=== PATIENT | female | born 1960 | race Caucasian/White ===

== ENCOUNTER 2016-11-02 11:29 | Emergency (ER) | payer SELFPAY ==
[2016-11-02] MEDS ORDERED: NORMAL SALINE 1000 ML 1,000 ML IV ONE (12:17)
[2016-11-02] MEDS ORDERED: KETOROLAC TROMETHAMINE INJ/PF 30 MG/1 ML SDV IV ONE (12:17)
--- NOTE | 2016-11-02 12:19 | ER Document Report ---
ED Medical Screen (RME) - General Chief Complaint: Abdominal Pain Stated Complaint: ABDOMINAL PAIN Time Seen by Provider: 11/02/16 12:16 Mode of Arrival: Ambulatory Information source: Patient TRAVEL OUTSIDE OF THE [place] IN LAST 30 DAYS: No - HPI Patient complains to provider of: abd pain Onset: Other - pt. states she has had intermittent abd pain for the past few days -- got much worse today. Pt. was dramtic unintentional wt. loss over the past several months - Related Data Allergies/Adverse Reactions: morphine [Morphine] Allergy (Mild, Verified 11/02/16 11:50) Home Medications: Current Home Medications No Home Medications 11/02/16 [History] Past Medical History - Social History Chew tobacco use (# tins/day): No Frequency of alcohol use: None Drug Abuse: None - Past Medical History Cardiac Medical History: Denies: Hx Coronary Artery Disease, Hx Hypercholesterolemia, Hx Hypertension Pulmonary Medical History: Reports: Hx Bronchitis Denies: Hx Asthma, Hx COPD, Hx Pneumonia Neurological Medical History: Reports: Hx Cerebrovascular Accident - medication related, drops out, ct's normal Renal/ Medical History: Reports: Hx Kidney Stones, Hx Ovarian Cysts, Hx Pelvic Inflammatory Disease. Denies: Hx Peritoneal Dialysis Malignancy Medical History: Reports: Hx Cervical Cancer - uterus too GI Medical History: Reports: Hx Gastroesophageal Reflux Disease, Hx Irritable Bowel, Hx Ulcerative Colitis. Denies: Hx Hepatitis Psychiatric Medical History: Reports: Hx Anxiety Traumatic Medical History: Reports: Hx Fractures - neck fx rib fx Infectious Medical History: Denies: Hx Hepatitis Past Surgical History: Reports: Hx Appendectomy, Hx Cholecystectomy, Hx Gynecologic Surgery - 1 oophorectomy, Hx Hysterectomy - and single oophorectomy , Hx Orthopedic Surgery - right shoulder and elbow - Immunizations Immunizations up to date: No - pt unsure Hx Diphtheria, Pertussis, Tetanus Vaccination: Yes Physical Exam - Vital signs Vitals: Temp Pulse Resp BP Pulse Ox 97.9 F 71 18 152/95 H 100 11/02/16 11:47 11/02/16 11:47 11/02/16 11:47 11/02/16 11:47 11/02/16 11:47 Course - Vital Signs Vital signs: Temp Pulse Resp BP Pulse Ox 97.9 F 71 18 152/95 H 100 11/02/16 11:47 11/02/16 11:47 11/02/16 11:47 11/02/16 11:47 11/02/16 11:47
[2016-11-02 12:59] LABS: ABSOLUTE EOSINOPHILS # (AUTO) 0.1 10^3/uL (0.0-0.6); ABSOLUTE LYMPHOCYTES (AUTO) 3.5 10^3/uL (0.5-4.7); ABSOLUTE MONOCYTES (AUTO) 0.4 10^3/uL (0.1-1.4); ABSOLUTE NEUT (AUTO) 2.6 10^3/uL (1.7-8.2); BASOPHILS % (AUTO) 0.6 % (0-2); EOSINOPHILS % (AUTO) 1.6 % (0-6); HEMOGLOBIN 14.1 g/dL (12.0-15.5); HGB HCT DIFFERENCE 2.3; LYMPHOCYTES % (AUTO) 52.8 % (13-45); MEAN CORPUSCULAR HEMOGLOBIN 33.6 pg (27.0-33.4); MEAN CORPUSCULAR HGB CONC 35.2 g/dL (32.0-36.0); MEAN CORPUSCULAR VOLUME 96 fl (80-97); MONOCYTES % (AUTO) 5.9 % (3-13); RED BLOOD COUNT 4.19 10^6/uL (3.72-5.28); RED CELL DISTRIBUTION WIDTH 13.6 % (11.5-14.0); SEGMENTED NEUTROPHILS % (AUTO) 39.1 % (42-78); WHITE BLOOD COUNT 6.6 10^3/uL (4.0-10.5)
[2016-11-02 13:13] LABS: APPEARANCE,URINE CLEAR; BILIRUBIN,URINE NEGATIVE (NEGATIVE); GLUCOSE, URINE NEGATIVE (NEGATIVE); KETONES,URINE NEGATIVE (NEGATIVE); LEUKOCYTE ESTERASE,URINE TRACE (NEGATIVE); NITRITE,URINE NEGATIVE (NEGATIVE); PROTEIN,URINE NEGATIVE (NEGATIVE); URINE SPECIFIC GRAVITY 1.004; UROBILINOGEN,URINE NEGATIVE mg/dL (<2.0)
[2016-11-02 13:18] LABS: ALANINE AMINOTRANSFERASE 22 U/L (9-52); ALBUMIN 4.7 g/dL (3.5-5.0); ALKALINE PHOSPHATASE 71 U/L (38-126); ANION GAP 13 (5-19); ASPARTATE AMINO TRANSFERASE 21 U/L (14-36); BILIRUBIN,DIRECT 0.4 mg/dL (0.0-0.4); BILIRUBIN,TOTAL 0.5 mg/dL (0.2-1.3); BLOOD UREA NITROGEN 6 mg/dL (7-20); CALCIUM 10.2 mg/dL (8.4-10.2); CARBON DIOXIDE 31 mmol/L (22-30); CHLORIDE 101 mmol/L (98-107); CREATININE RESULT 0.65 mg/dL (0.52-1.25); GLUCOSE 78 mg/dL (75-110); LIPASE 24.5 U/L (23-300); POTASSIUM 4.2 mmol/L (3.6-5.0); SODIUM 144.5 mmol/L (137-145); TOTAL PROTEIN 7.3 g/dL (6.3-8.2)
--- NOTE | 2016-11-02 14:13 | RADIOLOGY REPORT (SQ) ---
EXAM DESCRIPTION: CT ABD/PELVIS WITH IV ONLY COMPLETED DATE/TIME: 11/02/2016 1:42 pm REASON FOR STUDY: abd pain COMPARISON: None. TECHNIQUE: CT scan of the abdomen and pelvis performed using helical scanning technique with dynamic intravenous contrast injection. No oral contrast. Images reviewed with lung, soft tissue, and bone windows. Reconstructed coronal and sagittal MPR images reviewed. Delayed images for evaluation of the urinary system also acquired. All images stored on PACS. All CT scanners at this facility use dose modulation, iterative reconstruction, and/or weight based d osing when appropriate to reduce radiation dose to as low as reasonably achievable (ALARA). [facility]: Dose Right [facility]: CareDose [facility]: Dose Right [facility]: Teradose 4D [facility]: ThousandEyes CONTRAST TYPE AND DOSE: contrast/concentration: Isovue 370.00 mg/ml; Total Contrast Delivered: 68.0 ml; Total Saline Delivered: 65.0 ml RENAL FUNCTION: 0.65 RADIATION DOSE: Up-to-date CT equipment and radiation dose reduction techniques were employed. CTDIv ol: 7.1 - 9.2 mGy. DLP: 808 mGy-cm.. LIMITATIONS: Lack of oral contrast. FINDINGS: LOWER CHEST: No significant findings. No nodules or infiltrates. LIVER: Normal size. No masses. No dilated ducts. SPLEEN: Normal size. No focal lesions. PANCREAS: No masses. No significant calcifications. No adjacent inflammation or peripancreatic fluid collections. Pancreatic duct not dilated. GALLBLADDER: Surgically absent. ADRENAL GLANDS: No significant masses or asymmetry. RIGHT KIDNEY AND URETER: Right upper and lower pole scarring with focal caliceal dilatation at the si rafaela of the scarring. No solid masses. 2 nonobstructing stones in the lower pole largest measuring 5 mm. No hydronephrosis or hydroureter. LEFT KIDNEY AND URETER: No solid masses. No significant calcifications. No hydronephrosis or hydr oureter. AORTA AND VESSELS: No aneurysm. No dissection. Renal arteries, SMA, celiac without stenosis. RETROPERITONEUM: No retroperitoneal adenopathy, hemorrhage or masses. BOWEL AND PERITONEAL CAVITY: No masses or inflammatory changes. No free fluid or peritoneal masses. APPENDIX: Not visualized. PELVIS: No mass. No free fluid. Normal bladder. ABDOMINAL WALL: No masses. No hernias. BONES: No significant or acute findings. OTHER: No other significant finding. IMPRESSION: 1. Right renal scarring with small nonobstructing stones in the lower pole of the right kidney. 2. No acute abnormalities. TECHNICAL DOCUMENTATION: JOB ID: [id number] Quality ID # [id number]: Final reports with documentation of one or more dose reduction techniques (e.g., Au tomated exposure control, adjustment of the mA and/or kV according to patient size, use of iterative reconstruction technique) 2010 [employer]- All Rights Reserved
[2016-11-02] MEDS ORDERED: DIAZEPAM 2 MG TABLET PO ONE (15:22)
--- NOTE | 2016-11-02 15:59 | RADIOLOGY REPORT (SQ) ---
EXAM DESCRIPTION: CHEST PA/LAT COMPLETED DATE/TIME: 11/02/2016 3:43 pm REASON FOR STUDY: cough COMPARISON: AP chest 11/17/2009 EXAM PARAMETERS: NUMBER OF VIEWS: two views TECHNIQUE: Digital Frontal and Lateral radiographic views of the chest acquired. RADIATION DOSE: NA LIMITATIONS: none FINDINGS: LUNGS AND PLEURA: No opacities, masses or pneumothorax. No pleural effusion. MEDIASTINUM AND HILAR STRUCTURES: No masses or contour abnormalities. HEART AND VASCULAR STRUCTURES: Heart normal size. No evidence for failure. BONES: No acute changes. Old lower cervical fusion hardware HARDWARE: None in the chest. OTHER: No other significant finding. IMPRESSION: NO SIGNIFICANT RADIOGRAPHIC FINDING IN THE CHEST. TECHNICAL DOCUMENTATION: JOB ID: [id number] [employer]- All Rights Reserved
--- NOTE | 2016-11-02 16:10 | ER Document Report ---
ED GI/ - General Chief Complaint: Abdominal Pain Stated Complaint: ABDOMINAL PAIN Time Seen by Provider: 11/02/16 12:16 Mode of Arrival: Ambulatory Information source: Patient TRAVEL OUTSIDE OF THE [place] IN LAST 30 DAYS: No - HPI Patient complains to provider of: Abdominal pain Timing/Duration: Gradual Quality of pain: Sharp, Stabbing Severity at maximum: Severe Severity in ED: Moderate Location: Epigastric Associated symptoms: Nausea, Vomiting Exacerbated by: Food Similar symptoms previously: Yes Recently seen / treated by doctor: No Notes: 11/02/16 17:42 Patient is a 56-year-old female who presents to the emergency room complaining of worsening abdominal pain over the past 2-3 days, it is sharp and stabbing and in the epigastric region, it is worsened after eating and she is constantly nauseated, she reports having normal bowel movements, no fever, no urinary symptoms, patient reports a history of GI issues dating back for years, was previously followed by a [facility] who told her she had borderline Crohn's disease but she was not placed on medication for this, she reports losing approximately 40 pounds over the last 3 months because she is unable to eat without causing her nausea and vomiting or significant pain, she reports that she has an appetite can just not tolerate food when she ingests, she reports that it is any kind of food that she eats as tried several different foods including bland cereal, patient also goes on to report that she has had a lot of stress in her life recently, and is typically suffering from issues related to depression and possibly anxiety, also suffers from insomnia, due to insurance and financial issues she does not currently have a primary care provider or [facility] to follow-up with, in the past she has tried to get an appointment at the [facility] but due to the high volume of patients she was unable to get an appointment with them, patient is a heavy smoker as much as 2 packs per day, very rarely drinks alcohol and denies any street drug usage, she has a history of cholecystectomy, hysterectomy, appendectomy and a history of kidney stones previously requiring a lithotripsy at least once - Related Data Allergies/Adverse Reactions: morphine [Morphine] Allergy (Mild, Verified 11/02/16 11:50) Past Medical History - General Information source: Patient - Social History Smoking Status: Current Every Day Smoker Chew tobacco use (# tins/day): No Frequency of alcohol use: None Drug Abuse: None Family History: Reviewed & Not Pertinent Patient has suicidal ideation: No Patient has homicidal ideation: No - Past Medical History Cardiac Medical History: Denies: Hx Coronary Artery Disease, Hx Hypercholesterolemia, Hx Hypertension Pulmonary Medical History: Reports: Hx Bronchitis Denies: Hx Asthma, Hx COPD, Hx Pneumonia Neurological Medical History: Reports: Hx Cerebrovascular Accident - medication related, drops out, ct's normal Renal/ Medical History: Reports: Hx Kidney Stones, Hx Ovarian Cysts, Hx Pelvic Inflammatory Disease. Denies: Hx Peritoneal Dialysis Malignancy Medical History: Reports: Hx Cervical Cancer - uterus too GI Medical History: Reports: Hx Gastroesophageal Reflux Disease, Hx Irritable Bowel, Hx Ulcerative Colitis. Denies: Hx Hepatitis Psychiatric Medical History: Reports: Hx Anxiety Traumatic Medical History: Reports: Hx Fractures - neck fx rib fx Infectious Medical History: Denies: Hx Hepatitis Past Surgical History: Reports: Hx Appendectomy, Hx Cholecystectomy, Hx Gynecologic Surgery - 1 oophorectomy, Hx Hysterectomy - and single oophorectomy , Hx Orthopedic Surgery - right shoulder and elbow - Immunizations Immunizations up to date: No - pt unsure Hx Diphtheria, Pertussis, Tetanus Vaccination: Yes Review of Systems - Review of Systems Constitutional: Malaise, Weakness EENT: No symptoms reported Cardiovascular: Dizziness, Lightheaded Respiratory: No symptoms reported Gastrointestinal: Abdomen distended, Abdominal pain, Nausea, Vomiting, Poor fluid intake Genitourinary: No symptoms reported Female Genitourinary: No symptoms reported Musculoskeletal: No symptoms reported Skin: No symptoms reported Hematologic/Lymphatic: No symptoms reported Neurological/Psychological: Depression, Anxiety -: Yes All other systems reviewed and negative Physical Exam - Vital signs Vitals: Temp Pulse Resp BP Pulse Ox 97.9 F 71 18 152/95 H 100 11/02/16 11:47 11/02/16 11:47 11/02/16 11:47 11/02/16 11:47 11/02/16 11:47 Interpretation: Hypertensive - General General appearance: Alert In distress: None - HEENT Head: Normocephalic, Atraumatic Eyes: Normal Conjunctiva: Normal Extraocular movements intact: Yes Eyelashes: Normal Pupils: PERRL - Respiratory Respiratory status: No respiratory distress Chest status: Nontender Breath sounds: Normal Chest palpation: Normal - Cardiovascular Rhythm: Regular Heart sounds: Normal auscultation Murmur: No - Abdominal Inspection: Normal Distension: No distension Bowel sounds: Normal Tenderness: Tender - Diffusely tender with increased tenderness in the epigastric region Organomegaly: No organomegaly - Back Back: Normal, Nontender - Extremities General upper extremity: Normal inspection, Nontender, Normal color, Normal ROM , Normal temperature General lower extremity: Normal inspection, Nontender, Normal color, Normal ROM , Normal temperature, Normal weight bearing. No: Marcellus's sign - Neurological Neuro grossly intact: Yes Cognition: Normal Orientation: AAOx4 [place] Coma Scale Eye Opening: Spontaneous [place] Coma Scale Verbal: Oriented [place] Coma Scale Motor: Obeys Commands [place] Coma Scale Total: 15 Speech: Normal Motor strength normal: LUE, RUE, LLE, RLE Sensory: Normal - Psychological Associated symptoms: Tearful - Skin Skin Temperature: Warm Skin Moisture: Dry Skin Color: Normal Course - Re-evaluation Re-evalutation: 11/02/16 17:46 56-year-old female with chronic abdominal pain worsening over the past few days with symptoms slightly different than previous, unremarkable evaluation in the emergency room, however she has lost quite a bit of weight over the past few months indicating some chronic underlying illness that likely needs further evaluation by gastroenterology, she also seems to be suffering from underlying depression and/or anxiety which may be worsening her symptoms given workup in the emergency room today is quite possible that may be psychosomatic in nature, patient was on a large amount of medications in the past which she weaned herself off of approximately 4 years ago due to negative side effects, she has not really seen a doctor in several years due to insurance and financial issues , however she was willing to try medications that I suggested today including Compazine, Valium and Percocet, she was strongly advised that calm binding these medications all at once could lead to respiratory depression and therefore was advised to test each 1 at separate times to see which gave her the most relief, and hopefully if she takes Valium at nighttime she will get adequate sleep which may alleviate some of her other symptoms, patient was advised to follow-up at the [facility] and advised that they now have extended hours as opposed to when she prior tried to get an appointment and was told that she had to show up at specific hours on in order to try to get an appointment, she was also provided with information for follow-up with gastroenterology abdominal pain, patient and spouse at bedside acknowledge understanding and agreement with this plan, patient also expressed appreciation for care received in the emergency room today - Vital Signs Vital signs: Temp Pulse Resp BP Pulse Ox 97.6 F 60 18 137/80 H 100 11/02/16 16:20 11/02/16 16:20 11/02/16 16:20 11/02/16 16:20 11/02/16 16:20 - Laboratory Result Diagrams: 11/02/16 12:30 11/02/16 12:30 Laboratory results interpreted by me: 11/02/16 11/02/16 11/02/16 12:30 12:30 12:30 [facility] 33.6 H Seg Neutrophils % 39.1 L Lymphocytes % 52.8 H Carbon Dioxide 31 H BUN 6 L Ur Leukocyte Esterase TRACE H - Diagnostic Test Radiology reviewed: Image reviewed, Reports reviewed Discharge - Discharge Clinical Impression: Anxiety Abdominal pain Qualifiers: Abdominal location: epigastric Qualified Code(s): R10.13 - Epigastric pain Condition: Stable Disposition: HOME, SELF-CARE Instructions: Abdominal Pain ([facility]), Antinausea Medication ([facility]), Anxiety ([facility]) , Depression ([facility]), Gastroenterology, Oral Narcotic Medication ([facility]) Additional Instructions: Follow up with your primary care provider to [facility] in one to 2 days. Return to the emergency room immediately if symptoms worsen or any additional concerns. Prescriptions: Diazepam [Valium 2 mg Tablet] 2 mg PO QHS PRN #12 tablet PRN Reason: Oxycodone HCl/Acetaminophen [Percocet 5-325 mg Tablet] 1 - 2 tab PO ASDIR PRN # 20 tablet PRN Reason: Prochlorperazine Maleate [Compazine 10 mg Tablet] 10 mg PO TID #12 tablet
[2016-11-02 16:32] VITALS: BP 137/80
== END 2016-11-02 16:29 | disposition home or self-care (01) ==
LOC: ER 11:29
DX: F41.9 Anxiety disorder, unspecified (principal); R10.13 Epigastric pain; R11.2 Nausea with vomiting, unspecified; R53.81 Other malaise; R53.1 Weakness; R42 Dizziness and giddiness; F17.200 Nicotine dependence, unspecified, uncomplicated; Z88.6 Allergy status to analgesic agent; Z86.73 Personal history of transient ischemic attack (TIA), and cerebral infarction without residual deficits; Z87.442 Personal history of urinary calculi; Z85.41 Personal history of malignant neoplasm of cervix uteri; Z85.42 Personal history of malignant neoplasm of other parts of uterus; Z90.49 Acquired absence of other specified parts of digestive tract
CPT/HCPCS: 99284; 96361; 96374; 36415; 83690; 85025; 80053; 81001; 71020; 74177; J3490; J1885; J7030

== ENCOUNTER 2017-01-17 07:59 | Emergency (ER) | payer SELFPAY ==
--- NOTE | 2017-01-17 08:24 | ER Document Report ---
ED General - General Chief Complaint: Fall Stated Complaint: LEFT LEG PAIN Time Seen by Provider: 01/17/17 08:09 Notes: Patient is a 56-year-old female who presents emergency department via EMS with a chief complaint of left hip pain. Patient states that she fell twice prior to arrival. Patient states yesterday that she was on a ladder less than 3 feet high when her left hip gave out from her. She does admit to a history of sciatica. Then she states today that she was walking in her home and her pain was so severe that she fell. She has since been able to walk since the most recent fall. Otherwise she states that her other reason for coming in today is her anxiety. Patient states that she was sent home from the department previously with diazepam which helped control her symptoms and she has not followed up with anyone in the community due to being uninsured. Otherwise denies any suicidal homicidal ideations. TRAVEL OUTSIDE OF THE [place] IN LAST 30 DAYS: No - Related Data Allergies/Adverse Reactions: morphine [Morphine] Allergy (Mild, Verified 11/02/16 11:50) Past Medical History - Social History Smoking Status: Current Every Day Smoker Chew tobacco use (# tins/day): No Frequency of alcohol use: Occasional Drug Abuse: None Family History: Reviewed & Not Pertinent Patient has suicidal ideation: No Patient has homicidal ideation: No - Past Medical History Cardiac Medical History: Denies: Hx Coronary Artery Disease, Hx Hypercholesterolemia, Hx Hypertension Pulmonary Medical History: Reports: Hx Bronchitis Denies: Hx Asthma, Hx COPD, Hx Pneumonia Neurological Medical History: Reports: Hx Cerebrovascular Accident - medication related, drops out, ct's normal Renal/ Medical History: Reports: Hx Kidney Stones, Hx Ovarian Cysts, Hx Pelvic Inflammatory Disease. Denies: Hx Peritoneal Dialysis Malignancy Medical History: Reports: Hx Cervical Cancer - uterus too GI Medical History: Reports: Hx Gastroesophageal Reflux Disease, Hx Irritable Bowel, Hx Ulcerative Colitis. Denies: Hx Hepatitis Psychiatric Medical History: Reports: Hx Anxiety Traumatic Medical History: Reports: Hx Fractures - neck fx rib fx Infectious Medical History: Denies: Hx Hepatitis Past Surgical History: Reports: Hx Appendectomy, Hx Cholecystectomy, Hx Gynecologic Surgery - 1 oophorectomy, Hx Hysterectomy, Hx Orthopedic Surgery - right shoulder and elbow - Immunizations Immunizations up to date: No - pt unsure Hx Diphtheria, Pertussis, Tetanus Vaccination: Yes Review of Systems - Review of Systems Constitutional: No symptoms reported EENT: No symptoms reported Cardiovascular: No symptoms reported Respiratory: No symptoms reported Gastrointestinal: No symptoms reported Musculoskeletal: See HPI Neurological/Psychological: See HPI -: Yes All other systems reviewed and negative Physical Exam - Vital signs Vitals: Temp Pulse Resp BP Pulse Ox 98.1 F 72 22 H 124/79 99 01/17/17 08:15 01/17/17 08:15 01/17/17 08:15 01/17/17 08:15 01/17/17 08:15 - Notes Notes: PHYSICAL EXAMINATION: GENERAL: Well-appearing, well-nourished and in no acute distress. GCS 15 LUNGS: Breath sounds clear to auscultation bilaterally and equal. No wheezes rales or rhonchi. HEART: Regular rate and rhythm without murmurs. Pulses intact all throughout. Musculoskeletal: Normal range of motion, no pitting or edema. No cyanosis. Hip non tender, stable, patient able to bear weight. NEUROLOGICAL: Cranial nerves grossly intact. Normal speech, normal gait. Normal sensory, motor, and reflex exams. PSYCH: Patient with anxious mood, cooperative but tearful SKIN: Warm, No active bleeding Course - Re-evaluation Re-evalutation: 01/17/17 10:11 Patient is a 56-year-old female who is hemodynamically stable, no acute distress afebrile. No evidence of fracture noted on x-ray. Patient able to ambulate to and from the bathroom. tox screen positive for benzos and opiates which she is prescriptions for at home. Psych is evaluated the patient and recommends outpatient therapy. Patient given resources in the bedside and discussed to follow-up with them at the end of the week. Patient agrees with plan. Stable for discharge - Vital Signs Vital signs: Temp Pulse Resp BP Pulse Ox 98.1 F 66 16 114/65 98 01/17/17 11:16 01/17/17 11:16 01/17/17 11:16 01/17/17 11:16 01/17/17 11:16 - Laboratory Laboratory results interpreted by me: 01/17/17 09:20 Ur Leukocyte Esterase TRACE H - Diagnostic Test Radiology reviewed: Image reviewed, Reports reviewed Discharge - Discharge Clinical Impression: Anxiety Fall Qualifiers: Encounter type: initial encounter Qualified Code(s): W19.XXXA - Unspecified fall, initial encounter Condition: Good Disposition: HOME, SELF-CARE Instructions: Anxiety ([facility]), Sciatica ([facility]) Prescriptions: Hydroxyzine Pamoate [Vistaril 50 mg Capsule] 50 mg PO BID #30 capsule Methylprednisolone [Medrol Dosepack (4 mg/Tab) 21 Tab/Dosepak] 4 mg PO ASDIR PRN #21 tab.ds.pk PRN Reason: Referrals: [facility] [Provider Group] - Follow up tomorrow
--- NOTE | 2017-01-17 08:52 | RADIOLOGY REPORT (SQ) ---
EXAM DESCRIPTION: HIP LEFT AP/LATERAL COMPLETED DATE/TIME: 01/17/2017 8:44 am REASON FOR STUDY: fall yesterday, ambulating COMPARISON: 11/11/2014. NUMBER OF VIEWS: Two views. TECHNIQUE: AP pelvis and additional frog-leg view of the left hip. LIMITATIONS: None. FINDINGS: MINERALIZATION: Normal. LEFT HIP: No fracture or dislocation. No worrisome bone lesions. RIGHT HIP: No fracture or dislocation. No worrisome bone lesions. PUBIS AND ISCHIUM: No fracture. PELVIS: No fracture. SACRUM: No fracture or dislocation. No worrisome bone lesions. LOWER LUMBAR SPINE: No fracture or dislocation. No worrisome bone lesions. No significant disc disea se. SOFT TISSUES: No findings. OTHER: No other significant finding. IMPRESSION: NEGATIVE STUDY OF THE LEFT HIP AND PELVIS. NO RADIOGRAPHIC EVIDENCE OF ACUTE INJURY. TECHNICAL DOCUMENTATION: JOB ID: [id number] [employer]- All Rights Reserved
[2017-01-17] MEDS ORDERED: KETOROLAC TROMETHAMINE INJ/PF 30 MG/1 ML SDV IV ONE (09:06)
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
[2017-01-17] MEDS ORDERED: CYCLOBENZAPRINE HCL 10 MG TABLET PO ONE (10:11)
[2017-01-17] MEDS ORDERED: METHYLPREDNISOLONE INJ 40 MG/1 ML SDV IV ONE (10:11)
[2017-01-17 10:34] LABS: APPEARANCE,URINE CLEAR; BILIRUBIN,URINE NEGATIVE (NEGATIVE); GLUCOSE, URINE NEGATIVE (NEGATIVE); KETONES,URINE NEGATIVE (NEGATIVE); LEUKOCYTE ESTERASE,URINE TRACE (NEGATIVE); NITRITE,URINE NEGATIVE (NEGATIVE); PROTEIN,URINE NEGATIVE (NEGATIVE); URINE SPECIFIC GRAVITY 1.018; UROBILINOGEN,URINE NEGATIVE mg/dL (<2.0)
[2017-01-17 10:47] LABS: URINE BARBITURATES SCREEN NEGATIVE; URINE METHADONE SCREEN NEGATIVE; URINE OPIATES LOW UNCONFIRMED POSITIVE; URINE PHENCYCLIDINE SCREEN NEGATIVE
[2017-01-17] MEDS ORDERED: HYDROXYZINE PAMOATE 25 MG CAPSULE #4 (ER DISP) PO PRN (11:01)
[2017-01-17 11:17] VITALS: BP 114/65
== END 2017-01-17 11:27 | disposition home or self-care (01) ==
LOC: ER 07:59
DX: M25.552 Pain in left hip (principal); W11.XXXA Fall on and from ladder, initial encounter; F41.9 Anxiety disorder, unspecified; F17.200 Nicotine dependence, unspecified, uncomplicated; Z88.5 Allergy status to narcotic agent
CPT/HCPCS: 99284; 96374; 96375; 81001; 80307; 73502; J3490; J2920; J1885

== ENCOUNTER 2018-06-25 15:41 | Emergency (ER) | payer OTHER ==
[2018-06-25 16:25] VITALS: BP 115/69
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
== END 2018-06-25 16:39 | disposition home or self-care (01) ==
LOC: ER 15:41
DX: M54.6 Pain in thoracic spine (principal); R51 Headache; R42 Dizziness and giddiness; V87.7XXA Person injured in collision between other specified motor vehicles (traffic), initial encounter; G89.29 Other chronic pain; F17.200 Nicotine dependence, unspecified, uncomplicated; Z86.73 Personal history of transient ischemic attack (TIA), and cerebral infarction without residual deficits; Z87.442 Personal history of urinary calculi; Z85.41 Personal history of malignant neoplasm of cervix uteri; Z85.42 Personal history of malignant neoplasm of other parts of uterus; Z90.49 Acquired absence of other specified parts of digestive tract; Z90.710 Acquired absence of both cervix and uterus
CPT/HCPCS: 99283

== ENCOUNTER 2018-10-04 00:40 | Emergency (ER) | payer MEDICAID, OTHER ==
[2018-10-04] MEDS ORDERED: METOCLOPRAMIDE HCL INJ/PF 10 MG/2 ML SDV IV ONE (03:23)
[2018-10-04] MEDS ORDERED: KETOROLAC TROMETHAMINE INJ/PF 30 MG/1 ML SDV IV ONE (03:23)
[2018-10-04] MEDS ORDERED: DIPHENHYDRAMINE HCL 50 MG/ML VIAL IV ONE (03:23)
--- NOTE | 2018-10-04 03:29 | ER Document Report ---
ED Headache - General Chief Complaint: Headache >24 hrs old Stated Complaint: HEADACHE Time Seen by Provider: 10/04/18 03:11 Notes: 58-year-old female with history of anxiety CVA 9 years ago very mild residual left upper extremity deficit presents to the emergency department with chief complaint of headache x2 days. Patient states that the headache is debilitating, is frontal and it moves to the right side of her head, is constant, throbbing. Patient has significant photophobia and has had some blurred vision out of her right eye for 1 day. Patient states that she was given Zofran when she came in by EMS and stated that it helped her nausea significantly. Patient states that her neck is what is bothering her the most part she has neck stiffness and pain. Patient was recently placed on Keflex for possible cellulitis for a spider bite that she sustained on . Patient denies fevers or chills, denies vomiting, denies any acute weakness, denies abdominal pain, denies urinary symptoms. No other complaints TRAVEL OUTSIDE OF THE [place] IN LAST 30 DAYS: No - Related Data Allergies/Adverse Reactions: morphine [Morphine] Allergy (Mild, Verified 10/04/18 01:51) Past Medical History - Social History Smoking Status: Current Every Day Smoker Chew tobacco use (# tins/day): No Frequency of alcohol use: Occasional Drug Abuse: None Family History: Reviewed & Not Pertinent Patient has suicidal ideation: No Patient has homicidal ideation: No - Past Medical History Cardiac Medical History: Denies: Hx Coronary Artery Disease, Hx Hypercholesterolemia, Hx Hypertension Pulmonary Medical History: Reports: Hx Bronchitis Denies: Hx Asthma, Hx COPD, Hx Pneumonia Neurological Medical History: Reports: Hx Cerebrovascular Accident - medication related, drops out, ct's normal Renal/ Medical History: Reports: Hx Kidney Stones, Hx Ovarian Cysts, Hx Pelvic Inflammatory Disease. Denies: Hx Peritoneal Dialysis Malignancy Medical History: Reports: Hx Cervical Cancer - uterus too GI Medical History: Reports: Hx Gastroesophageal Reflux Disease, Hx Irritable Bowel, Hx Ulcerative Colitis. Denies: Hx Hepatitis Psychiatric Medical History: Reports: Hx Anxiety Traumatic Medical History: Reports: Hx Fractures - neck fx rib fx Infectious Medical History: Denies: Hx Hepatitis Past Surgical History: Reports: Hx Appendectomy, Hx Cholecystectomy, Hx Gynecologic Surgery - 1 oophorectomy, Hx Hysterectomy, Hx Orthopedic Surgery - right shoulder and elbow - Immunizations Immunizations up to date: No - pt unsure Hx Diphtheria, Pertussis, Tetanus Vaccination: Yes Review of Systems - Review of Systems Constitutional: See HPI EENT: No symptoms reported Cardiovascular: See HPI Respiratory: See HPI Gastrointestinal: See HPI Genitourinary: See HPI Female Genitourinary: No symptoms reported Musculoskeletal: No symptoms reported Skin: No symptoms reported Hematologic/Lymphatic: No symptoms reported Neurological/Psychological: See HPI Physical Exam - Vital signs Vitals: Temp Pulse Resp BP Pulse Ox 98.1 F 65 16 133/90 H 97 10/04/18 00:46 10/04/18 00:46 10/04/18 00:46 10/04/18 00:46 10/04/18 00:46 Course - Re-evaluation Re-evalutation: 10/04/18 03:30 Patient was sleeping when I went into the room and she woke up uneventful. I interviewed her and I am deferring exam until I can make her more comfortable with a migraine cocktail. 10/04/18 05:22 Patient states she is feeling much better after getting the migraine cocktail. I was able to do a neuro exam and there were no neurologic deficits, no focal weakness. Patient's lab work all reassuring as there is no evidence of infection. At this time I do not feel we need to do any imaging based on the clinical exam and AB work. Headache was not maximal in onset, patient has no focal neurologic deficits, no nuchal rigidity, vital signs within normal limits, and patient is overall well in appearance. Based on clinical history and examination I do not suspect an acute subarachnoid hemorrhage, dural venous sinus thrombosis, acute meningitis, or intercranial mass. Given my low clinical suspicion for any acute life-threatening etiology, I do not feel advanced neuro imaging or laboratory testing is indicated at this time. I explained to patient that because she has a history of migraines and with these recent stressors in her life this most likely represents that and the best thing for her to do was to go home and sleep while she is in a good place to try to break the cycle. 10/04/18 06:26 I revisited with patient and she is feeling better and is ready to go home and she is stable for discharge. - Vital Signs Vital signs: Temp Pulse Resp BP Pulse Ox 98.1 F 61 18 113/66 99 10/04/18 00:46 10/04/18 05:58 10/04/18 05:58 10/04/18 05:58 10/04/18 05:58 - Laboratory Result Diagrams: 10/04/18 03:55 10/04/18 03:55 Laboratory results interpreted by me: 10/04/18 10/04/18 03:55 03:55 Chloride 108 H Creatinine 0.48 L Total Protein 6.1 L Albumin 3.3 L Urine Blood SMALL H Ur Leukocyte Esterase SMALL H Discharge - Discharge Clinical Impression: Headache, Neck pain Condition: Good Disposition: HOME, SELF-CARE Additional Instructions: You were seen today for a probable migraine headache. Please follow-up with your primary care doctor regarding today's ED visit. Return to emergency department immediately if you develop a headache that gets to its maximum camacho rity within 20 minutes of onset, you pass out, you develop weakness, numbness, changes in your vision, become unable to keep any fluids down for more than 12 hours, or develop a fever greater than 101 degrees Fahrenheit. If you develop a similar migraine headache in the future I recommend that you immediately take 600 mg of ibuprofen and 50 mg of Benadryl and go to sleep as quickly as possible. This can often prevent your migraine headache from becoming severe.
[2018-10-04 04:21] LABS: ABSOLUTE LYMPHOCYTES (AUTO) 2.2 10^3/uL (0.5-4.7); ABSOLUTE MONOCYTES (AUTO) 0.4 10^3/uL (0.1-1.4); ABSOLUTE NEUT (AUTO) 3.1 10^3/uL (1.7-8.2); BASOPHILS % (AUTO) 0.6 % (0-2); EOSINOPHILS % (AUTO) 0.4 % (0-6); HEMATOCRIT 37.5 % (36.0-47.0); HEMOGLOBIN 12.7 g/dL (12.0-15.5); LYMPHOCYTES % (AUTO) 37.5 % (13-45); MEAN CORPUSCULAR HEMOGLOBIN 31.5 pg (27.0-33.4); MEAN CORPUSCULAR HGB CONC 33.8 g/dL (32.0-36.0); MEAN CORPUSCULAR VOLUME 93 fl (80-97); MONOCYTES % (AUTO) 7.6 % (3-13); PLATELET COUNT 255 10^3/uL (150-450); RED BLOOD COUNT 4.03 10^6/uL (3.72-5.28); RED CELL DISTRIBUTION WIDTH 13.5 % (11.5-14.0); SEGMENTED NEUTROPHILS % (AUTO) 53.9 % (42-78); TOTAL CELLS COUNTED % (AUTO) 100 %; WHITE BLOOD COUNT 5.8 10^3/uL (4.0-10.5)
[2018-10-04 04:25] LABS: APPEARANCE,URINE CLEAR; BILIRUBIN,URINE NEGATIVE (NEGATIVE); COLOR,URINE STRAW; GLUCOSE, URINE NEGATIVE (NEGATIVE); KETONES,URINE NEGATIVE (NEGATIVE); LEUKOCYTE ESTERASE,URINE SMALL (NEGATIVE); NITRITE,URINE NEGATIVE (NEGATIVE); PROTEIN,URINE NEGATIVE (NEGATIVE); URIC ACID CRYSTALS,URINE RARE /HPF; URINE SPECIFIC GRAVITY 1.005; UROBILINOGEN,URINE NEGATIVE mg/dL (<2.0)
[2018-10-04 04:39] LABS: ALBUMIN 3.3 g/dL (3.5-5.0); ALKALINE PHOSPHATASE 74 U/L (38-126); ASPARTATE AMINO TRANSFERASE 27 U/L (14-36); BILIRUBIN,DIRECT 0.3 mg/dL (0.0-0.4); BILIRUBIN,TOTAL 0.3 mg/dL (0.2-1.3); BLOOD UREA NITROGEN 9 mg/dL (7-20); CALCIUM 8.6 mg/dL (8.4-10.2); CHLORIDE 108 mmol/L (98-107); GLUCOSE 92 mg/dL (75-110); POTASSIUM 4.1 mmol/L (3.6-5.0); TOTAL PROTEIN 6.1 g/dL (6.3-8.2)
[2018-10-04 04:44] LABS: CARBON DIOXIDE 27 mmol/L (22-30)
[2018-10-04 04:54] LABS: ANION GAP 5 (5-19)
[2018-10-04 06:01] VITALS: BP 113/66
[2018-10-04 06:34] LABS: URINE AMPHETAMINES SCREEN NEGATIVE; URINE BARBITURATES SCREEN NEGATIVE; URINE BENZODIAZEPINES SCREEN NEGATIVE; URINE COCAINE SCREEN NEGATIVE; URINE MARIJUANA (THC) SCREEN NEGATIVE; URINE METHADONE SCREEN NEGATIVE; URINE PHENCYCLIDINE SCREEN NEGATIVE
== END 2018-10-04 05:58 | disposition home or self-care (01) ==
LOC: ER 00:40
DX: R51 Headache (principal); M54.2 Cervicalgia; F41.9 Anxiety disorder, unspecified; F17.200 Nicotine dependence, unspecified, uncomplicated; I69.334 Monoplegia of upper limb following cerebral infarction affecting left non-dominant side; Z90.49 Acquired absence of other specified parts of digestive tract; Z88.6 Allergy status to analgesic agent
CPT/HCPCS: 99284; 96374; 96375; 36415; 85025; 80053; 81001; 80307; J1200; J1885; J2765

== ENCOUNTER → 2018-12-12 | Outpatient (CLI) | payer OTHER, MEDICAID ==
--- NOTE | 2018-12-12 12:58 | RADIOLOGY REPORT (SQ) ---
EXAM DESCRIPTION: T SPINE AP/LAT COMPLETED DATE/TIME: 12/12/2018 11:22 am REASON FOR STUDY: PAIN IN THORACIC SPINE (M54.6) M54.6 PAIN IN THORACIC SPINE COMPARISON: None. NUMBER OF VIEWS: Two views. TECHNIQUE: AP and lateral radiographic images acquired of the thoracic spine. LIMITATIONS: None. FINDINGS: MINERALIZATION: Normal. ALIGNMENT: Mild scoliosis. VERTEBRAE: No fracture or bone lesion. Maintained height, normal segmentation. DISCS: No significant loss of height or significant narrowing. No large osteophytes. HARDWARE: None in the spine. MEDIASTINUM AND SOFT TISSUES: Normal heart size and aortic contour. No soft tissue abnormality. VISUALIZED LUNG DAWSON: Clear. OTHER: No other significant finding. IMPRESSION: Mild scoliosis. No acute finding. TECHNICAL DOCUMENTATION: JOB ID: [id number] [employer]- All Rights Reserved Reading location - IP/workstation name: [email or web address]
== END ==
LOC: RAD 10:45
PROVIDERS: ATTEND Physician Assistant
DX: M41.84 Other forms of scoliosis, thoracic region (principal); M54.6 Pain in thoracic spine
CPT/HCPCS: 72070